=== PATIENT | male | born 1945 | race Caucasian/White ===

== ENCOUNTER → 2019-09-24 | Outpatient (CLI) | payer OTHER ==
[~2019-09-24] MED LIST: ADULT LOW DOSE81 MG PO; ANTACID; COMPAZINE10 MG PO; PERCOCET 5-3251 EACH PO; VITAMIN C100 M1 PO; ZOCOR40 MG PO
== END ==
LOC: CAT 11:10
DX: Z13.6 Encounter for screening for cardiovascular disorders (principal); E78.00 Pure hypercholesterolemia, unspecified; I25.10 Atherosclerotic heart disease of native coronary artery without angina pectoris

== ENCOUNTER → 2019-12-07 | Outpatient (CLI) | payer OTHER, BC | END | disposition home or self-care (01) | LOC: SJCVCIMAG 09:43 | DX: I08.3 Combined rheumatic disorders of mitral, aortic and tricuspid valves (principal); E78.00 Pure hypercholesterolemia, unspecified; E78.5 Hyperlipidemia, unspecified ==

== ENCOUNTER → 2020-12-07 | Outpatient (CLI) | payer OTHER, BC | LOC: SJCVC 09:46 | PROVIDERS: ATTEND Internal Medicine Cardiovascular Disease | DX: R94.31 Abnormal electrocardiogram [ECG] [EKG] (principal); R93.1 Abnormal findings on diagnostic imaging of heart and coronary circulation; E78.00 Pure hypercholesterolemia, unspecified; E78.5 Hyperlipidemia, unspecified; Z98.890 Other specified postprocedural states; Z79.82 Long term (current) use of aspirin; Z79.899 Other long term (current) drug therapy ==

== ENCOUNTER → 2021-12-07 | Outpatient (CLI) | payer OTHER, BC | LOC: SJCVCIMAG 08:37 | PROVIDERS: ATTEND Internal Medicine Cardiovascular Disease | DX: R94.31 Abnormal electrocardiogram [ECG] [EKG] (principal); E78.00 Pure hypercholesterolemia, unspecified; E78.5 Hyperlipidemia, unspecified; I25.10 Atherosclerotic heart disease of native coronary artery without angina pectoris; R93.1 Abnormal findings on diagnostic imaging of heart and coronary circulation ==